=== PATIENT | female | born 1985 | race Caucasian/White ===

== ENCOUNTER 2023-10-20 07:42 | Outpatient (CLI) | payer BC ==
[2023-10-20] VITALS (10 sets, daily range): BP systolic 138–148; BP diastolic 91–105; PULSE 66–74
[~2023-10-20] VITALS: Ht 170.2 cm; Wt 95.0 kg
[~2023-10-20 07:42] MED LIST: LEXAPRO10 MG PO; LYRICA100 MG PO; MULTI VITAMINS1 TAB PO; RELAFEN 50500 MG/TAB PO
--- NOTE | 2023-10-20 07:57 | NUR ---
0755 PT PRESENTS TO UNIT COMPLAINING OF DECREASED MOVEMENT THIS AM. PT STATES SHE FELT BABY MOVE "A LITTLE" AT 0700 BUT BABY IS "NOT ACTIVE SHE USUALLY IS". PT DENIES LOF, VB, STRONG/REGULAR CTX, OR ANY OTHER CONCERNS AT THIS TIME. RN DISCUSSES POC AND PT VERBALIZES UNDERSTANDING.
[2023-10-20] MEDS ORDERED: LR 1,000 ML IV PRN (08:00)
--- NOTE | 2023-10-20 08:15 | NUR ---
0815 ROLES MD UPDATED ON PT ARRIVAL, COMPLAINTS, FHTS REACTIVE, BP'S X2. ORDERS FOR A CMP, CBC NOW. RN JACIELVO
[2023-10-20 08:35] LABS: HEMOGLOBIN 10.8 g/dl (12.5-16.0); MEAN CELL VOLUME 80 fl (80.0-100.0); MEAN CORPUSCULAR HEMOGLOBIN 27 pg (27-31); MEAN CORPUSCULAR HGB CONC 33 g/dl (33.0-37.0); MEAN PLATELET VOLUME 10.3 fl (7.4-10.4); PLATELET COUNT 227 K/mm3 (130-400); RED BLOOD COUNT 4.07 M/mm3 (4.10-5.30); REDCELL DISTRIBUTION WIDTH-CV 13.1 % (11.5-14.5)
[2023-10-20 08:48] LABS: HEMATOCRIT 32.7 % (37.0-47.0)
[2023-10-20 08:55] LABS: ALBUMIN 2.6 g/dL (3.5-5.0); BILIRUBIN,TOTAL 0.3 mg/dL (0.2-1.2); CALCIUM 8.8 mg/dL (8.4-10.2); CREATININE, serum 0.73 mg/dL (0.57-1.11); POTASSIUM 3.7 mEq/L (3.5-4.5); TOTAL PROTEIN 5.4 g/dl (6.2-8.1)
--- NOTE | 2023-10-20 09:07 | NUR ---
0905 ROLES MD BEDSIDE DISCUSSING BLOOD PRESSURES AND LABS WITH PATIENT. VERBAL ORDERS GIVEN TO RN FOR 30 MG PROCARDIA XL NOW, BETA X1 NOW WITH PLANS FOR PT TO FOLLOW UP IN OFFICE TOMORROW FOR SECOND DOSE. RN RBVO.
[2023-10-20] MEDS ORDERED: NIFEdipine XL 30 MG TAB PO ONE (09:15)
[2023-10-20] MEDS ORDERED: Betamethasone Acetate/Na Phos 6 MG/ML 5 ML MDV IM ONE (09:15)
--- NOTE | 2023-10-20 10:29 | NUR ---
PT GIVEN BOTH WRITTEN AND VERBAL DISCHARGE INSTRUCTIONS. PT ORDERED TO CALL/COME BACK IF PT NOTICES ANY LOF, VB, DFM, STRONG/REGULAR CTX, HERNANDEZ UNRELIEVED BY TYLENOL, DIZZINESS, BLURRED VISION, SPOTS IN VISION, INCREASED SWELLING, RUQ PAIN. PT VERBALIZES UNDERSTANDING AND HAS NO QUESTIONS. PT INFORMED OF HER APPOINTMENT AT OFFICE TOMORROW FOR SECOND DOSE OF BETA.
[2023-10-21] MEDS ORDERED: WELLBUTRIN XL300 M1 PO (12:01)
[2023-10-21] MEDS ORDERED: LEXAPRO20 MG PO (12:01)
== END 2023-10-20 10:10 | disposition home or self-care (01) ==
LOC: LDRO 07:42
PROVIDERS: Obstetrics & Gynecology
DX: O36.8130 Decreased fetal movements, third trimester, not applicable or unspecified (principal); Z3A.33 33 weeks gestation of pregnancy
CPT/HCPCS: J0702

== ENCOUNTER 2023-10-30 20:52 | Outpatient (CLI) | payer BC ==
[~2023-10-30] VITALS: Ht 170.2 cm; Wt 96.4 kg
[~2023-10-30 20:52] MED LIST changes: +LEXAPRO20 MG PO; +WELLBUTRIN XL300 M1 PO
--- NOTE | 2023-10-30 20:58 | NUR ---
PT PRESENTS TO L&D WITH C/O NEEDING HER BP CHECKED. SHE WAS CHECKING THEM AT HOME AND THEY WERE 160'S OVER 90'S. SHE DENIES EDEMA, HERNANDEZ OR BLURRED VISION. NO LEAKING FLUID OR BLEEDING. PT TAKES PROCARDIA 30 MG ONCE A DAY AT HOME. SHE LAST TOOK IT AT 0800 THIS MORNING. ASSESSMENT AND HISTORY DONE.
[2023-10-30] MEDS ORDERED: LR 1,000 ML IV PRN (21:15)
[2023-10-30 21:30] VITALS: BP 153/97; PULSE 75; TEMP 98.2
--- NOTE | 2023-10-30 21:30 | NUR ---
DR URBANO PHONED IN, INFORMED OF PT HERE, ORDERS NOTED FOR STAT CBC AND CMP. CALL HER WITH RESULTS. ORDERS PUT IN AND LAB [facility] CALLED TO COME DRAW STAT.
--- NOTE | 2023-10-30 21:44 | NUR ---
LAB IS HERE TO DRAW BLOOD.
[2023-10-30] MEDS ORDERED: PROCARDIA XL 3030 MG PO (21:49)
[2023-10-30 22:03] LABS: HEMOGLOBIN 10.5 g/dl (12.5-16.0); MEAN CELL VOLUME 79 fl (80.0-100.0); MEAN CORPUSCULAR HEMOGLOBIN 27 pg (27-31); MEAN CORPUSCULAR HGB CONC 34 g/dl (33.0-37.0); RED BLOOD COUNT 3.95 M/mm3 (4.10-5.30); REDCELL DISTRIBUTION WIDTH-CV 14.6 % (11.5-14.5)
[2023-10-30 22:16] LABS: BILIRUBIN,TOTAL 0.7 mg/dL (0.2-1.2); CALCIUM 8.1 mg/dL (8.4-10.2); CREATININE, serum 1.01 mg/dL (0.57-1.11); POTASSIUM 4.3 mEq/L (3.5-4.5)
[2023-10-30 22:20] LABS: PLATELET COUNT 47 K/mm3 (130-400)
[2023-10-30 22:25] LABS: BAND 13 % (0-10); LYMPHOCYTE 7 % (20.0-51.0); METAMYELOCYTE 1 % (0-0); NEUTROPHILS 75 % (42.0-75.2); PLATELET ESTIMATE DECREASED (NORMAL)
[2023-10-30 22:26] LABS: ANISOCYTOSIS 2+; MICROCYTOSIS 1+; SCHISTOCYTES 1+
[2023-10-30 22:27] LABS: OVALOCYTES 1+
[2023-10-30 22:28] LABS: POLYCHROMASIA 1+
[2023-10-30 22:29] LABS: HYPOCHROMIA 1+
[2023-10-30 22:30] VITALS: BP 161/100; PULSE 74
--- NOTE | 2023-10-30 22:30 | NUR ---
DR URBANO HERE, SHE IS ON PHONE WITH HOSPITAL FOR TRANSFER.
--- NOTE | 2023-10-30 22:37 | NUR ---
IV ACCESS INT IN RIGHT WRIST 18 G. FLUSHED WITH NORMAL SALINE.
--- NOTE | 2023-10-30 22:45 | NUR ---
IV FLUIDS LR STARTED VIA PUMP AT 50 ML/HR. 2247 MAG SULATE 4 GM BOLUS STARTED AT 2250 VIA PUMP AT 200 ML/HR. 2306 MAG SULFATE 2 GMS STARTED.VIA PUMP AT 50 ML/HR
[2023-10-30 23:00] VITALS: BP 151/98; PULSE 81
[2023-10-30] MEDS ORDERED: Magnesium Sulfate 8% 50 ML IV ONE (23:00)
[2023-10-30] MEDS ORDERED: Magnesium Sulfate 4% 50 ML IV PRN ×2 (23:00→23:30)
[2023-10-30] MEDS ORDERED: Calcium Gluconate 1,000 MG (4.65 mEq)/10 ML VIAL IV PRN (23:00)
[2023-10-30] MEDS ORDERED: Magnesium Sulfate 4% 500 ML IV SCH ×2 (23:00→23:15)
[2023-10-30 23:30] VITALS: BP 171/101; PULSE 87; TEMP 98.2
--- NOTE | 2023-10-30 23:35 | NUR ---
[facility]S TEAM HERE TO GET PT FOR TRANSFER TO [facility] IN [place]. REPORT GIVEN TO THEM, PT ASSISTED TO [facility] AND IV PUMPS TRANSFERED TO [facility]. THEY LEFT THE UNIT AT 2335. I CALLED REPORT TO PAOLA HELM AT [facility] AT 2345.
== END 2023-10-30 23:35 | disposition critical access hospital (66) ==
LOC: LDR 20:52 → LDRO 20:52
PROVIDERS: Obstetrics & Gynecology
DX: O16.9 Unspecified maternal hypertension, unspecified trimester (principal); Z3A.00 Weeks of gestation of pregnancy not specified
CPT/HCPCS: OP; J3475; J7120